=== PATIENT | female | born 1960 | race Two or more races ===

== ENCOUNTER 2019-07-19 13:01 | Outpatient (CLI) | payer OTHER ==
[~2019-07-19 13:01] MED LIST: LEVSIN/SL0.125 MG SL; PEPCID40 MG PO; PROVENTIL3 ML/2.5 M IH
== END 2019-07-19 13:34 | disposition home or self-care (01) ==
LOC: RAD 13:01
DX: M47.816 Spondylosis without myelopathy or radiculopathy, lumbar region (principal); M51.36 Other intervertebral disc degeneration, lumbar region